=== PATIENT | female | born 2000 | race Caucasian/White ===

== ENCOUNTER 2022-02-25 14:43 | Outpatient (CLI) | payer OTHER, SELFPAY ==
--- NOTE | ~2022-02-25 | XR_ITS ---
XR abdomen obstructive series DATE: 02/25/2022 14:57 INDICATION: Chronic gastrointestinal and irritable bowel syndrome symptoms TECHNIQUE: 2 supine AP views COMPARISON: None FINDINGS: The lung bases are clear. Normal heart size. There is a prominent amount of fecal material throughout most of the colon but no bowel obstruction. The psoas shadows are intact. No visceromegaly or abnormal calcification is noted. Included skeletal structures are unremarkable. IMPRESSION: Prominent amount of fecal material in the colon; no bowel obstruction Reviewed, dictated and finalized at [facility]. Reviewed, dictated and finalized at location B. [employer] DEVELOPER IMPRESSION: Prominent amount of fecal material in the colon; no bowel obstructi on
== END 2022-02-25 14:44 | disposition home or self-care (01) ==
PROVIDERS: PCP Family Medicine; Visit Provider Family Medicine
DX: R19.8 Other specified symptoms and signs involving the digestive system and abdomen (principal)
CPT/HCPCS: 74019

== ENCOUNTER 2022-04-07 13:59 | Outpatient (CLI) | payer OTHER, SELFPAY ==
--- NOTE | ~2022-04-07 | XR_ITS ---
EXAM: XR abdomen obstructive series DATE: 04/07/2022 14:15 HISTORY: upper abd pain radiating to back, f/u constipation . COMPARISON: 02/25/2022. FINDINGS: Clear lung bases. Normal bowel gas pattern. No organomegaly. Pelvic phleboliths. Regional bones and soft tissues normal for age. IMPRESSION: Normal abdominal radiograph findings. Reviewed, dictated and finalized at location K. E LEAD DEVELOPER
== END 2022-04-07 14:00 | disposition home or self-care (01) ==
LOC: ANHBWCIMG 14:00
PROVIDERS: PCP Family Medicine; Visit Provider Family Medicine
DX: R10.13 Epigastric pain (principal); R10.11 Right upper quadrant pain
CPT/HCPCS: 74019

== ENCOUNTER 2022-04-09 10:29 | Outpatient (CLI) | payer OTHER, SELFPAY ==
--- NOTE | ~2022-04-09 | US_ITS ---
EXAMINATION: US abdomen limited DATE: 04/09/2022 10:55 INDICATION: Right upper quadrant pain TECHNIQUE: Multiple grayscale and Doppler ultrasound images of the abdomen were obtained. COMPARISON: None available FINDINGS: Bowel gas obscures visualization of the pancreas. The liver is normal with normal echogenic ity and echotexture. No surface nodularity. Normal hepatopetal flow in the main portal vein. The gall bladder is normal with no abnormal wall thickening, pericholecystic fluid or stones. The normal commo n bile duct measures 4 mm. There was no sonographic Morales sign. IMPRESSION: 1. Normal sonographic study of the gallbladder. Reviewed, dictated and finalized at location B. [employer]ING TOOL SETTER
== END 2022-04-09 10:30 | disposition home or self-care (01) ==
PROVIDERS: PCP Family Medicine; Visit Provider Family Medicine
DX: R10.11 Right upper quadrant pain (principal); R10.13 Epigastric pain
CPT/HCPCS: 76705

== ENCOUNTER 2025-01-18 15:09 | Outpatient (CLI) | payer OTHER, SELFPAY ==
--- NOTE | ~2025-01-18 | XR_ITS ---
XR_[id number]_CR Indication: M54.10 - Radiculopathy, site unspecified Comparison: None Findings: The vertebral heights are intact. No fracture or subluxation. The disc heights are intact. Soft tissues unremarkable Impression: No acute abnormality. Reviewed, dictated and finalized at location P. Impression: No acute abnormality.
--- NOTE | ~2025-01-18 | XR_ITS ---
XR thoracic spine 2V Indication: M54.10 - Radiculopathy, site unspecified Comparison: None Findings: The vertebral heights are intact. No fracture or subluxation. The disc heights are intact. Soft tissues unremarkable Impression: No acute abnormality. Reviewed, dictated and finalized at location P. Impression: No acute abnormality.
--- NOTE | ~2025-01-18 | XR_ITS ---
XR lumbar spine 2-3V Indication: M54.10 - Radiculopathy, site unspecified Comparison: None Findings: The vertebral heights are intact. No fracture or subluxation. The disc heights are intact. Soft tissues unremarkable Impression: No acute abnormality. Reviewed, dictated and finalized at location P. Impression: No acute abnormality.
== END 2025-01-18 15:10 | disposition home or self-care (01) ==
LOC: MICIMG 15:10
PROVIDERS: PCP Nurse Practitioner Family; Visit Provider Nurse Practitioner Family
DX: M54.10 Radiculopathy, site unspecified (principal); M54.9 Dorsalgia, unspecified
CPT/HCPCS: 72040; 72070; 72100